=== PATIENT | male | born 1985 | race Asian ===

== ENCOUNTER 2016-09-02 13:36 | Outpatient (CLI) | payer OTHER | END 2016-09-02 13:37 | disposition home or self-care (01) | DX: R07.9 Chest pain, unspecified (principal) ==

== ENCOUNTER 2019-04-17 05:31 | Outpatient (CLI) | payer OTHER | END 2019-04-17 05:32 | disposition critical access hospital (66) | LOC: EMS 05:31 | PROVIDERS: ATTEND Surgery | DX: R10.10 Upper abdominal pain, unspecified (principal); R11.2 Nausea with vomiting, unspecified; R19.7 Diarrhea, unspecified | CPT/HCPCS: A0425; A0427 ==

== ENCOUNTER 2019-04-17 06:04 | Observation (INO) | payer OTHER ==
--- NOTE | 2019-04-17 06:18 | ED Physician Documentation ---
<Favio Mckeon A - Last Filed: 04/17/19 07:20> PD HPI ABD PAIN - Stated complaint Stated Complaint: ABD PX - Chief complaint Chief Complaint: Abd Pain - History obtained from History obtained from: Patient - History of Present Illness Timing - onset: How many hours ago (6), Today (The patient had onset at midnight of general abdominal pain and bilateral flank pain associated with nausea vomiting and diarrhea. He states he had multiple episodes of diarrhea that was watery without any noted blood or melena. He had episodes of emesis that were without any noted blood. Initially was food products and then became bilious. His pain was undulating with cramping and spasm feeling largely in both flanks but also into the mid and generalized abdomen.) Timing - duration: Hours (6) Timing - details: Abrupt onset, Still present Quality: Cramping, Aching, Pain. No: Fullness/distended Location: All over / everywhere Radiation: Lower back, Left flank, Right flank Improved by: No: Vomiting, Position Worsened by: Palpation. No: Position Associated symptoms: Nausea, Vomiting, Diarrhea, Loss of appetite, Testicular pain (for several months, with feeling of small lump on left testicle.). No: Fever, Hematemesis, Melena, Hematochezia, Near syncope / syncope Similar symptoms before: Has not had sx before (He states he will get abdominal cramping at times with eating large meals. He has been trying "elimination diet" of avoiding certain foods such as lactose and gluten's but still has intermittent crampy pains. He denies any similar episodes to this evening.) Recently seen: Not recently seen (He has an appointment with his primary care in the next couple of days to evaluate the ongoing left testicle pain he has had for a few months.) Review of Systems Constitutional: reports: Fever Nose: denies: Rhinorrhea / runny nose, Congestion Throat: denies: Sore throat Cardiac: denies: Chest pain / pressure Respiratory: denies: Cough GI: reports: Abdominal Pain, Nausea, Vomiting, Diarrhea. denies: Abdominal Swelling, Constipation, Hematemesis, Bloody / black stool : denies: Dysuria, Frequency, Discharge Skin: denies: Rash Neurologic: reports: Generalized weakness, Near syncope. denies: Focal weakness, Numbness, Altered mental status Psychiatric: denies: Depressed, Suicidal Endocrine: denies: Weight loss Immunocompromised: denies: Immunocompromised PD PAST MEDICAL HISTORY - Past Medical History Past Medical History: No - Past Surgical History Past Surgical History: Yes - Allergies Allergies/Adverse Reactions: Allergies Allergy/AdvReac Type Severity Reaction Status Date / Time No Known Drug Allergies Allergy Verified 04/17/19 06:06 - Living Situation Living Situation: reports: With spouse/s.o. Living Arrangement: reports: At home - Social History Does the pt smoke?: No Smoking Status: Never smoker Does the pt drink ETOH?: Yes Does the pt have substance abuse?: No - Family History Family history: denies: Aortic aneursym, Aortic dissection - Immunizations Immunizations are current?: Yes - POLST Patient has POLST: No PD ED PE NORMAL - Vitals Vital signs reviewed: Yes - General General: Alert and oriented X 3, Well developed/nourished, Other (He appears considerably uncomfortable. He is moving about on the cart to find comfortable position.) - HEENT HEENT: Moist mucous membranes, Pharynx benign - Neck Neck: Supple, no meningeal sign, No adenopathy - Cardiac Cardiac: RRR, No murmur - Respiratory Respiratory: Clear bilaterally - Abdomen Abdomen: Normal bowel sounds, Soft, Non distended, No organomegaly, Other (He has generalized tenderness in the abdomen without any focal area that is worse. There is no percussion or rebound tenderness. No masses are felt. There is some tenderness of the at the left inguinal area which he states was from a prior varicocele surgery and has scar tissue in that spot. There is some tender ness on both flank areas to percussion.) - Rectal Rectal: Deferred - Back Back: Other (CVA tender both sides) - Derm Derm: Normal color, Warm and dry - Extremities Extremities: No tenderness to palpate, Normal ROM s pain, No calf tenderness / c ord - Neuro Neuro: Alert and oriented X 3, No motor deficit, Normal speech PD MEDICAL DECISION MAKING - ED course Complexity details: reviewed results, re-evaluated patient (He is feeling a bit better after some IV fluids and medications. He still complains of the flank pain. Recheck of the abdomen still does not have any focal tenderness but a bit generalized.), considered differential (The patient has abrupt nausea vomiting diarrhea and upper abdomen and back pain. It seems most likely consistent with viral gastroenteritis or food related. However he does have a considerable degree of pain in the abdomen and back that would be concerning then for potential perforation or free air. Unlikely to be bilateral kidney stones but would still evaluate the kidneys. I think we do a CT scan to better assess for acute focal intestinal problem and also potential renal problem.), d/w patient Departure - Departure Clinical Impression: Nausea vomiting and diarrhea, Left testicular pain, Flank pain, acute <Eli Maynard - Last Filed: 04/17/19 14:33> Results - Vitals Vitals: Vital Signs - 24 hr 04/17/19 04/17/19 04/17/19 06:06 07:18 09:19 Temperature 38.0 C H 37.6 C H 37.3 C Heart Rate 90 99 94 Respiratory 24 14 14 Rate Blood Pressure 148/82 H 118/76 118/56 L O2 Saturation 98 96 94 04/17/19 04/17/19 11:57 13:30 Temperature 36.2 C L 37 C Heart Rate 92 108 H Respiratory 16 18 Rate Blood Pressure 138/99 H 122/66 O2 Saturation 100 94 Oxygen O2 Source Room air - Labs Labs: Laboratory Tests 04/17/19 04/17/19 04/17/19 06:44 06:44 06:44 WBC 11.1 H RBC 5.63 Hgb 16.4 Hct 49.4 MCV 87.7 MCH 29.1 MCHC 33.2 RDW 13.4 Plt Count 192 MPV 9.6 Neut # (Auto) 9.4 H Lymph # (Auto) 0.6 L [place] # (Auto) 0.9 Eos # (Auto) 0.1 Baso # (Auto) 0.0 Absolute Nucleated RBC 0.00 Nucleated RBC % 0.0 Sodium 138 Potassium 4.1 Chloride 105 Carbon Dioxide 22 Anion Gap 11.0 BUN 23 H Creatinine 1.2 Estimated GFR (MDRD) 70 L Glucose 124 H Lactic Acid 2.5 H Calcium 9.0 Total Bilirubin 0.9 AST 30 ALT 50 Alkaline Phosphatase 96 Total Protein 7.6 Albumin 4.5 Globulin 3.1 Albumin/Globulin Ratio 1.5 Lipase 34 Urine Color Urine Clarity Urine pH Ur Specific [place] Urine Protein Urine Glucose (UA) Urine Ketones Urine Occult Blood Urine Nitrite Urine Bilirubin Urine Urobilinogen Ur Leukocyte Esterase Ur Microscopic Review Urine Culture Comments 04/17/19 04/17/19 08:25 13:51 WBC RBC Hgb Hct MCV MCH MCHC RDW Plt Count MPV Neut # (Auto) Lymph # (Auto) [place] # (Auto) Eos # (Auto) Baso # (Auto) Absolute Nucleated RBC Nucleated RBC % Sodium Potassium Chloride Carbon Dioxide Anion Gap BUN Creatinine Estimated GFR (MDRD) Glucose Lactic Acid 1.7 Calcium Total Bilirubin AST ALT Alkaline Phosphatase Total Protein Albumin Globulin Albumin/Globulin Ratio Lipase Urine Color YELLOW Urine Clarity CLEAR Urine pH 7.0 Ur Specific [place] 1.015 Urine Protein TRACE Urine Glucose (UA) NEGATIVE Urine Ketones NEGATIVE Urine Occult Blood NEGATIVE Urine Nitrite NEGATIVE Urine Bilirubin NEGATIVE Urine Urobilinogen 0.2 (NORMAL) Ur Leukocyte Esterase NEGATIVE Ur Microscopic Review NOT INDICATED Urine Culture Comments NOT INDICATED
[2019-04-17] MEDS ORDERED: SODIUM CHLORIDE 0.9% 1,000 ML IV ONE ×2 (06:32→09:49)
[2019-04-17] MEDS ORDERED: KETOROLAC 30 MG/ML VIAL IVP STA (06:33)
[2019-04-17] MEDS ORDERED: HYDROmorphone 2 MG/ML VIAL IVP STA (06:33)
[2019-04-17] MEDS ORDERED: ONDANSETRON 4 MG/2 ML VIAL IVP STA ×2 (06:33→12:02)
[2019-04-17 06:49] LABS: BASOPHILS % (AUTO) 0.4 %; EOSINOPHILS # (AUTO) 0.1 10^3/uL (0.0-0.7); HGB - HEMOGLOBIN 16.4 g/dL (14.0-18.0); LYMPHOCYTES # (AUTO) 0.6 10^3/uL (1.5-3.5); LYMPHOCYTES % (AUTO) 5.4 %; MEAN CORPUSCULAR HEMOGLOBIN 29.1 pg (27.0-31.0); MEAN CORPUSCULAR HGB CONC 33.2 g/dL (32.0-36.0); MEAN CORPUSCULAR VOLUME 87.7 fL (80.0-94.0); MEAN PLATELET VOLUME 9.6 fL (7.4-11.4); MONOCYTES # (AUTO) 0.9 10^3/uL (0.0-1.0); NEUTROPHILS # (AUTO) 9.4 10^3/uL (1.5-6.6); NEUTROPHILS % (AUTO) 84.7 %; PLT - PLATELET COUNT 192 10^3/uL (130-450); RED BLOOD COUNT 5.63 10^6/uL (4.70-6.10); RED CELL DISTRIBUTION WIDTH 13.4 % (12.0-15.0); WHITE BLOOD COUNT 11.1 x10^3/uL (4.8-10.8)
[2019-04-17 07:03] LABS: ALBUMIN 4.5 g/dL (3.2-5.5); ALBUMIN/GLOBULIN RATIO 1.5 (1.0-2.2); BILIRUBIN,TOTAL 0.9 mg/dL (0.2-1.0); CREATININE 1.2 mg/dL (0.6-1.2); TOTAL PROTEIN 7.6 g/dL (6.7-8.2)
[2019-04-17] MEDS ORDERED: IOVERSOL 320 100 ML VIAL IVP ONE ×2 (07:13→14:47)
[2019-04-17 08:32] LABS: BILIRUBIN,URINE NEGATIVE (NEGATIVE); GLUCOSE, URINE (UA) NEGATIVE (NEGATIVE); KETONES,URINE (UA) NEGATIVE (NEGATIVE); LEUKOCYTE ESTERASE, URINE NEGATIVE (NEGATIVE); NITRITE,URINE NEGATIVE (NEGATIVE); OCCULT BLOOD,URINE NEGATIVE (NEGATIVE); PROTEIN,URINE TRACE mg/dL (NEGATIVE); UROBILINOGEN,URINE 0.2 (NORMAL) E.U./dL (NORMAL)
[2019-04-17 08:36] LABS: CLARITY,URINE CLEAR (CLEAR)
--- NOTE | 2019-04-17 09:18 | CT Report ---
Reason: nausea and vomiting; abd/flank pain Procedure Date: 04/17/2019 Accession Number: [id number] / [id number] Procedure: CT - Abdomen/Pelvis W CPT Code: Final Report FULL RESULT: EXAM: CT ABDOMEN AND PELVIS EXAM DATE: 04/17/2019 08:17 AM. CLINICAL HISTORY: Nausea and vomiting, abdominal and flank pain. COMPARISONS: None. TECHNIQUE: Routine helical CT imaging was performed through the abdomen and pelvis. IV contrast: OPTI 320 100ML. Enteric contrast: No. Reconstructions: Coronal and sagittal. In accordance with CT protocol optimization, one or more of the following dose reduction techniques were utilized for this exam: automated exposure control, adjustment of mA and/or KV based on patient size, or use of iterative reconstructive technique. FINDINGS: Lung Bases: Unremarkable. Liver: Normal. No masses. Gallbladder/Bile Ducts: Unremarkable. Spleen: Normal. Pancreas: Normal. Adrenal Glands: Normal. Kidneys: Normal. No masses or hydronephrosis. Peritoneal Cavity/Bowel: The colon is nearly completely empty. No colonic wall thickening, mass or stricture identified. Small bowel is within normal limits. No constipation or obstruction. No free fluid or adenopathy. The appendix is well visualized and normal. Pelvic Organs: The urinary bladder, prostate and rectum are within normal limits. Multiple phlebolith noted. A small indirect left fat-containing inguinal hernia measures up to 2.5 cm. Vasculature: No aneurysms or other significant abnormality. Bones: No significant abnormality. Other: None. IMPRESSION: 1. Colon nearly completely empty suggesting a possible nonspecific diffuse diarrheal process. 2. No focal colitis or other inflammatory process visualized. Normal appendix. 3. No bowel obstruction or constipation. 4. No urinary tract stones or obstruction. 5. Small indirect fat-containing left inguinal hernia. RADIA
--- NOTE | 2019-04-17 11:40 | Ultrasound Report ---
Reason: L testicle pain and mass Procedure Date: 04/17/2019 Accession Number: [id number] / [id number] Procedure: US - Testicle w/Doppler CPT Code: Final Report FULL RESULT: EXAM: SCROTAL ULTRASOUND EXAM DATE: 04/17/2019 11:19 AM. CLINICAL HISTORY: Left testicular pain and palpable mass. COMPARISON: None. TECHNIQUE: Real-time scanning was performed with static images obtained. Color-flow images were utilized. FINDINGS: Right: Testis: 5.3 x 2.5 x 3.5 cm. No mass, calcification, or abnormal blood flow. Epididymis: 2.3 x 0.5 x 0.8 cm. Normal size and echotexture. No mass or abnormal blood flow. Hydrocele: Trace. Varicocele: None. Left: Testis: 5.6 x 2.9 x 3.3 cm. No mass, calcification, or abnormal blood flow. Epididymis: 4.1 x 0.9 x 1.8 cm. Normal size and echotexture. No mass or abnormal blood flow. Hydrocele: Small. Varicocele: Present. Other: Targeted evaluation of the left lower quadrant demonstrates a small fat-reducible containing hernia. IMPRESSION: 1. Left side varicocele and small hydrocele. 2. Normal bilateral testicles and. 3. Reducible small fat-containing left inguinal hernia. RADIA
--- NOTE | 2019-04-17 12:14 | ED Physician Documentation ---
ED Addendum - Addendum Addendum: 04/17/19 12:11 This patient was turned over to me to follow-up on the CT report. The CT did not show any evidence of appendicitis or a colitis. Patient was feeling much better stated that his pain was down to about a 2-3 out of 10 but he was concerned about a testicular issue that has been worsening. He reports he had a prior varicocele that was underwent surgery but recently he has developed a mass on the testicle feels like a grain of rice and then noted some swelling and pain eased off but now it is back again. He did not associate that pain in the testicle being any more intense with this abdominal episode. On exam the left testicle is not swollen but there is a what feels like a fluid-filled mass on the superior aspect of the left testicle. No scrotal swelling or edema. We did do an ultrasound of the testicle and it showed a varicocele and hydrocele but no testicular abnormality and there was good flow to the testicle. There was a small fat-containing inguinal hernia. When I went in to discuss these results patient was clearly starting to have more abdominal discomfort. He is feeling nauseous and the pain was increasing. I have ordered more Zofran and will re- evaluate at that time. I did re-palpate the hernia and did not feel that this was incarcerated. 04/17/19 13:40 The patient was having increasing pain again and was ordered for morphine 2 mg. After administering that he promptly vomited and was feeling little bit better. On a repeat his lactic acid and I talked to him about being admitted for an observation he is agreeable to that he has [facility] and I spoken to the [facility] intake physician. He is going to look at whether or not the patient can be admitted here for observation and will need to be transferred. 04/17/19 13:55 The [facility] intake physician call me back and that has authorized an observation admission for hearing him here at [facility]. I spoke with the hospitalist and she is agreed to accept the patient for admission. I have ordered a repeat lactate.
[2019-04-17] MEDS ORDERED: MORPHINE 2 MG/ML CARPUJECT IVP STA (13:23)
[2019-04-17] MEDS ORDERED: ONDANSETRON 4 MG/2 ML VIAL IVP PRN (14:28)
[2019-04-17] MEDS ORDERED: PROCHLORPERAZINE 10 MG/2 ML VIAL IVP PRN (14:28)
[2019-04-17] MEDS: ACETAMINOPHEN 1,000 MG/100 ML 100 ML IV PRN (15:48)
[2019-04-17] MEDS: D5NS W/20 MEQ KCL 1,000 ML IV SCH (15:56)
[2019-04-17] MEDS: SODIUM CHLORIDE FLUSH 0.9% 10 ML SYRINGE IVP SCH (16:32)
--- NOTE | 2019-04-17 19:17 | HISTORY & PHYSICAL EXAMINATION ---
DATE OF SERVICE: 04/17/2019 Physician: Michelle Olivas MD HISTORY OF PRESENT ILLNESS: This is a 33-year-old white male who takes no medications. He has a past medical history of varicocele that required testicular surgery approximately 15 years ago. He also has a history of several years of intermittent abdominal pain with sensitivities to certain foods and as such, he has eliminated milk and milk products, red meat, tomatoes. Overnight, he awoke with extreme abdominal pain, worse than he usually gets, and it was followed by nausea, vomiting and diarrhea at 4 a.m., and he presented to the emergency room. He was given antiemetics, IV fluids, pain medications, and had another episode of nausea and vomiting following the morphine. He had an abdominal CT done that showed a completely emptied out colon, and no masses, fluid or abscesses were seen. He then started to complain of severe left testicular pain and underwent ultrasound in the emergency room, which showed a varicocele and hydrocele. He told me that he was already planning to see a urologist, due to feeling a seed-like mass around his L testicle, on his own. As he was getting the ultrasound in the ER, his abdominal pain worsened once again and he is now being admitted for evaluation of abdominal pain and dehydration. The ER provider called his insurance, [employer], who approved an Observation stay. PAST MEDICAL HISTORY: Intermittent abdominal pain of unknown etiology, remote history of varicocele requiring testicular surgery. MEDICATIONS: None. ALLERGIES: NONE. SOCIAL HISTORY: He is a nonsmoker, drinks very rare alcohol. No illicit drug use. He is a strategy manager and works in construction. He lives with his and 1-year-old child. FAMILY HISTORY: Noncontributory. REVIEW OF SYSTEMS: A comprehensive review of systems was performed and the pertinent positives are listed, the rest are negative. Yesterday's dinner was pizza, which he normally has tolerated before, and the is not sick and ate the same foods. He has had no fever. There has never been blood seen in his bowel movements. He has never seen a biodiesel engineering manager. PHYSICAL EXAMINATION GENERAL: Young, muscular white male. He is in no distress, lying in bed. VITAL SIGNS: Blood pressure 130/99, heart rate 92 in sinus rhythm. He had a low-grade temperature of 38.0 in the emergency room. Respiratory rate 14. HEENT: Unremarkable. NECK: Without JVD. CHEST: Clear. HEART: Normal heart sounds. ABDOMEN: Soft, mildly distended. Normal bowel sounds. No guarding or rebound. There is mild tenderness in the lower abdomen. EXTREMITIES: No clubbing, cyanosis or edema. NEUROLOGIC: Intact. LABORATORY DATA: Normal electrolytes. BUN is 23, creatinine 1.2. Lactic acid was 2.5, on repeat after 3L of iv fluids it improved to 1.7, normal liver tests, normal lipase. White count 11.1 with high neutrophils of 9.4%, hemoglobin 16.4, platelet count normal at 192. Urinalysis unremarkable. IMAGING: Abdomen and pelvis CT: Nearly completely emptied colon, suggesting a possible nonspecific diffuse diarrheal process, and there is a left inguinal hernia noted. Ultrasound of the testes showed: a left-sided varicocele, a small hydrocele and a left inguinal hernia. No EKG was done. IMPRESSION 1. Abdominal pain. 2. Nausea, vomiting 3. Diarrhea. 4. Dehydration. 5. Testicular pain, left, with 3 etiologies as potential causes (hydrocele, varicocele,and inguinal hernia on the left). PLAN: Place the patient in Observation status. Begin IV hydration. Begin bowel rest with n.p.o. except ice chips, and advance to clear diet as tolerated. Use antiemetics p.r.n. Follow his electrolytes, magnesium and phosphate. Collect stool for C. difficile and for bacterial cultures and begin contact precautions. Use IV Tylenol for pain control, no narcotics if possible. The patient will need referral to urology, as well as gastroenterology after discharge. CODE STATUS: FULL CODE. DEEP VENOUS THROMBOSIS PROPHYLAXIS: SCDs. ATTESTATION: The patient is expected to be discharged or transferred to another facility within 96 hours: Yes. cc: Ashvin Correia MD TD: 04/17/2019 18:58 MTDD
[2019-04-17] MEDS: SODIUM CHLORIDE FLUSH 0.9% 10 ML SYRINGE IVP PRN (21:06)
[2019-04-17] MEDS: FAMOTIDINE 20 MG/2 ML VIAL IVP SCH (21:06)
[2019-04-18] MEDS: D5NS W/20 MEQ KCL 1,000 ML IV SCH (02:19)
[2019-04-18] MEDS: SODIUM CHLORIDE FLUSH 0.9% 10 ML SYRINGE IVP SCH ×2 (02:22→08:01)
[2019-04-18] MEDS: ACETAMINOPHEN 1,000 MG/100 ML 100 ML IV PRN (05:14)
[2019-04-18 05:35] LABS: BASOPHILS % (AUTO) 0.3 %; EOSINOPHILS # (AUTO) 0.4 10^3/uL (0.0-0.7); EOSINOPHILS % (AUTO) 6.4 %; HGB - HEMOGLOBIN 13.1 g/dL (14.0-18.0); LYMPHOCYTES # (AUTO) 1.6 10^3/uL (1.5-3.5); LYMPHOCYTES % (AUTO) 27.3 %; MEAN CORPUSCULAR HEMOGLOBIN 27.6 pg (27.0-31.0); MEAN CORPUSCULAR HGB CONC 31.1 g/dL (32.0-36.0); MEAN CORPUSCULAR VOLUME 88.6 fL (80.0-94.0); MEAN PLATELET VOLUME 9.7 fL (7.4-11.4); MONOCYTES # (AUTO) 0.7 10^3/uL (0.0-1.0); MONOCYTES % (AUTO) 12.4 %; NEUTROPHILS # (AUTO) 3.1 10^3/uL (1.5-6.6); NEUTROPHILS % (AUTO) 53.3 %; PLT - PLATELET COUNT 161 10^3/uL (130-450); RED BLOOD COUNT 4.75 10^6/uL (4.70-6.10); WHITE BLOOD COUNT 5.8 x10^3/uL (4.8-10.8)
[2019-04-18 05:42] LABS: CALCIUM 8.3 mg/dL (8.5-10.3)
[2019-04-18] MEDS: SODIUM CHLORIDE FLUSH 0.9% 10 ML SYRINGE IVP PRN (08:06)
[2019-04-18] MEDS: FAMOTIDINE 20 MG/2 ML VIAL IVP SCH (08:06)
[2019-04-18 08:13] VITALS: BP 143/70
--- NOTE | 2019-04-18 10:58 | Discharge Plan ---
Discharge Plan Problem Reviewed?: Yes Disposition: Home, Self Care Condition: Stable Diet: Soft Activity Restrictions: Activity as Tolerated Shower Restrictions: No Driving Restrictions: No Instruction Topics: IBS Diet Lifestyle Health Concerns: You were in Observation status for iv rehydration and management of abdominal and testicular pain. The CT of the abdomen was not specific, and you need a Gastroenterology evaluation. The testicular imaging showed a varicocele, a hydracele, and a left inguinal hernia. You need to see a Urologust. Plan of Treatment: Advance your diet slowly, avoiding high-fiber foods, and mild and milk products, which are hard to digest. Consider a BRAT diet (bread, rice, applesauce, tea). Stay well hydrated using various liquids. You should see your PCP about the recurrent abdominal pain and get referral to a GI specialist. You should not be lifting anything over 10-15 lbs, due to the inguinal hernia. You need referral to a Urologist as well, for the testicular pain, the mass that you yourself could feel, and the varicocele and hydrocele problems. You can take Tylenol or Ibuprofen for pain control. Care Goals: Improved symptoms. Assessment: The patient understands. No Smoking: If you smoke, Please STOP! Call for help. Follow-up with: Ashvin Correia MD [Primary Care Provider] -
--- NOTE | 2019-04-18 18:52 | DISCHARGE SUMMARY ---
Discharge Summary Admit Date: 04/17/19 Discharge Date: 04/18/19 Discharging Provider: Dr Michelle Olivas Primary Care Provider: Dr Ashvin Correia Code Status: Attempt Resuscitation Condition at Discharge: Stable Discharge Disposition: 01 Home, Self Care - DIAGNOSES Admission Diagnoses: 1) Abdominal pain 2) N/V 3) Diarrhea 4) L testicular pain Discharge Diagnoses with Status of Each Condition: See below - HPI History of Present Illness: This is a 33-year-old white male with a history of varicocele surgery 15 years ago, otherwise he is on no daily medications. He has a 2 to 3-year history of intermittent abdominal pain with sensitivities to certain foods which she has eliminated. He has never had evaluation for this pain or been seen by a GI specialist. The patient awoke at 4 AM with sudden severe abdominal pain and a large diarrheal bowel movement. He then developed N/V. He presented to the ER and the work-up showed stable BP and HR but he had a fever of 38C, and a CT abdomen and pelvis showed a completely empty colon and no acute findings. He was also complaining of L testicular pain. An ultrasound of the the testes showed a L varicocele, hydrocele and L inguinal hernia which was reducible on exam. He was given Morphine for pain which caused vomiting. His labs showed dehydration with BUN/creat 23/1.2 and a lactic acid level of 2.5. He was placed into Observation status for management of abdominal pain, L testicular pain and dehydration. - HOSPITAL COURSE Hospital Course: 1) Abdominal pain The pain and fever resolved with only Tylenol for control. He was started on clear liquids which he tolerated and the diet was advanced to a BRAT diet. He was advised to have follow-up with his PCP and be referred for GI evaluation of years of recurrent abdominal symptoms. 2) Diarrhea There were no more significant diarrheal bowel movements (since the colon was entirely empty by imaging). He did pass gas and had smears of stool sent for C. diff and bacterial cultures and all returned with negative results. 3) N/V There were no further episodes after the Morphime dose caused vomiting. 4) Dehydration He was given rehydration with iv fluids aggressively. The BUN/creat by the following day were normal at 13/1.0 and lactic acid was normal. 5) Testicular pain, L This patient reported feeling a mass the size of rice before this admission and already had a Urology appointment, which he missed because he was hospitalized here. With the following etiologies as causes, he was advised to reschedule an appointment to a Urologist. 6) Hydrocele As in #5 7) Varicolcele As in #5 8) Left inguinal hernia He was advised no heavy lifting and to see Urology and GI specialists. - ALLERGIES Allergies/Adverse Reactions: Allergies Allergy/AdvReac Type Severity Reaction Status Date / Time No Known Drug Allergies Allergy Verified 04/17/19 06:06 - PHYSICAL EXAM AT DISCHARGE General Appearance: positive: No acute distress, Alert Eyes Bilateral: positive: PERRL ENT: positive: Other (Moist mucosa) Neck: positive: Nml inspection, No JVD, Other (Supple) Respiratory: positive: No respiratory distress, Breath sounds nml Cardiovascular: positive: Regular rate & rhythm, No murmur Abdomen: positive: Non-tender, Nml bowel sounds, No distention Extremities: positive: No pedal edema Neurologic/Psychiatric: positive: Oriented x3, Other (Grossly intact) - LABS Result Diagrams: 04/18/19 05:25 04/18/19 05:25 - DIAGNOSTIC IMAGING Diagnostic Imaging Results: Final report reviewed - TIME SPENT Time Spent in Discharge (Minutes): 35
== END 2019-04-18 13:25 | disposition home or self-care (01) ==
LOC: ED 06:04 → MS2 14:20
PROVIDERS: ADMIT Internal Medicine; ATTEND Internal Medicine
DX: R10.84 Generalized abdominal pain (principal); R11.14 Bilious vomiting; R19.7 Diarrhea, unspecified; E86.0 Dehydration; R50.9 Fever, unspecified; M54.9 Dorsalgia, unspecified; N50.812 Left testicular pain; I86.1 Scrotal varices; N43.3 Hydrocele, unspecified; K40.90 Unilateral inguinal hernia, without obstruction or gangrene, not specified as recurrent; T40.2X5A Adverse effect of other opioids, initial encounter; Y92.238 Other place in hospital as the place of occurrence of the external cause
CPT/HCPCS: 36415; 74177; 76870; 80048; 80053; 81003; 83605; 83690; 83735; 85025; 87045; 87046; 87493; 93975; 96361; 96365; 96366; 96375; 96376; 99285; G0378; J0131; J1170; Q9967; 81001; 87086

== ENCOUNTER 2021-03-13 16:22 | Outpatient (CLI) | payer OTHER ==
--- NOTE | 2021-03-13 17:00 | XRAY Report ---
PROCEDURE: Chest 2 View X-Ray INDICATIONS: COUGH TECHNIQUE: 2 view(s) of the chest. COMPARISON: None. FINDINGS: Surgical changes and devices: None. Lungs and pleura: No pleural effusions or pneumothorax. Lungs are clear. Mediastinum: Mediastinal contours are normal. Heart size is normal. Bones and chest wall: No suspicious bony abnormalities. Soft tissues appear unremarkable. IMPRESSION: No acute cardiopulmonary pathology. Reviewed by: Wei Espinoza MD on 03/13/2021 4:59 PM PDT Approved by: Wei Espinoza MD on 03/13/2021 4:59 PM PDT Station ID: [id number]
== END 2021-03-13 16:23 | disposition home or self-care (01) ==
LOC: DI.S 16:22
PROVIDERS: ATTEND Physician Assistant
DX: R05.9 Cough, unspecified (principal)

== ENCOUNTER 2021-09-09 14:46 | Outpatient (CLI) | payer OTHER ==
--- NOTE | 2021-09-09 16:47 | XRAY Report ---
PROCEDURE: Foot 3 View LT INDICATIONS: PAIN OF LEFT BRIJESH, LEFT FOOT TECHNIQUE: 3 views of the foot were acquired. COMPARISON: None FINDINGS: Bones: No fractures or dislocations. No suspicious bony lesions. Soft tissues: No tibiotalar joint effusion. Achilles tendon appears normal. IMPRESSION: No fracture. No osseous lesion. If symptoms and/or clinical concern for pathology persists, further a ssessment with repeat plain film radiographs (7-10 days) or advanced imaging (CT, MR, bone scan) shou ld be considered. Reviewed by: Sonia Hoover MD, PhD on 09/09/2021 4:46 PM PDT Approved by: Sonia Hoover MD, PhD on 09/09/2021 4:46 PM PDT Station ID: [id number]
--- NOTE | 2021-09-09 16:48 | XRAY Report ---
PROCEDURE: Ankle 2 View LT INDICATIONS: PAIN IN LEFT ANKLE AND JOINTS OF LEFT FOOT TECHNIQUE: 2 views of the ankle were acquired. COMPARISON: None FINDINGS: Bones: No fractures or dislocations. Ankle mortise is normally aligned. No suspicious bony lesions . Soft tissues: No tibiotalar joint effusion. Achilles tendon appears normal. IMPRESSION: No fracture. No osseous lesion. If symptoms and/or clinical concern for pathology persists, further a ssessment with repeat plain film radiographs (7-10 days) or advanced imaging (CT, MR, bone scan) shou ld be considered. Reviewed by: Sonia Hoover MD, PhD on 09/09/2021 4:47 PM PDT Approved by: Sonia Hoover MD, PhD on 09/09/2021 4:47 PM PDT Station ID: [id number]
== END 2021-09-09 14:47 | disposition home or self-care (01) ==
LOC: DI.S 14:46
PROVIDERS: ATTEND Nurse Practitioner Family
DX: M79.672 Pain in left foot (principal); M25.572 Pain in left ankle and joints of left foot

== ENCOUNTER 2023-07-04 08:32 | Outpatient (CLI) | payer OTHER ==
--- NOTE | 2023-07-04 15:24 | Ultrasound Report ---
PROCEDURE: Abdomen Limited INDICATIONS: ELEVATED ALK PHOS TECHNIQUE: Real-time focused scanning was performed of the abdomen, with image documentation. COMPARISONS: CT abdomen pelvis 04/17/2019. FINDINGS: Liver: Liver is normal in size and homogeneous in echotexture. Mildly increased hepatic echogenicit y. Gallbladder: Unremarkable. Biliary ducts: Intrahepatic bile ducts are non-dilated. Extrahepatic bile duct caliber measures 6.6 mm. Normal is 6-7 mm or less in diameter, or 10 mm or less post-cholecystectomy. Pancreas: Visualized portions of the pancreas are sonographically normal. Right kidney: Normal in size and echotexture. Right kidney measures 13.2 cm long. No hydronephrosis or nephrolithiasis. No solid masses. No complex renal cystic lesions which require follow-up. Aorta: Visualized aorta is normal in caliber at less than 3 cm. IVC: Intrahepatic inferior vena cava is patent. Miscellaneous: No free abdominal fluid. IMPRESSION: Mildly increased hepatic echogenicity may reflect hepatic steatosis. No cholelithiasis or sonographic evidence of acute cholecystitis. Reviewed by: Ingris Marrero MD on 07/04/2023 3:23 PM PST Approved by: Ingris Marrero MD on 07/04/2023 3:23 PM PST Station ID: [id number]
== END 2023-07-04 08:33 | disposition home or self-care (01) ==
LOC: DI 08:32
PROVIDERS: ATTEND Registered Nurse
DX: R74.8 Abnormal levels of other serum enzymes (principal)